=== PATIENT | female | born 1960 | race Caucasian/White ===

== ENCOUNTER → 2018-06-15 | Outpatient (CLI) | payer OTHER ==
[~2018-06-15] MED LIST: ADVIL100 M1 PO; CATAFLAN PO; CYMBALTA60 MG PO; SKELAXIN800 MG PO
== END | disposition home or self-care (01) ==
LOC: EKG 06:00 → CIR.AMB 06-22 06:40 → EDSTATUS 07-06 08:45
DX: R93.1 Abnormal findings on diagnostic imaging of heart and coronary circulation (principal); Z01.810 Encounter for preprocedural cardiovascular examination